=== PATIENT | male | born 1970 | race Caucasian/White ===

== ENCOUNTER 2021-08-02 18:29 | Emergency (ER) | payer OTHER, SELFPAY ==
[2021-08-02 18:38] VITALS: BP 145/80; PULSE 70; RESP 16; TEMP 36; O2SAT 99
--- NOTE | 2021-08-02 19:07 | NUR.NOTE ---
Nursing Note: EDA Jessica at bedside for EKG. Patient refuses test at this time. Reports he is concerned about his insurance deductible and only wants testing that is absolutely necessary. ADAM Bach notified. Conversation with patient, plan for patient to discuss plan of care with his spouse and let us know how to proceed. Gait steady in room. Moves all extremities. Alert and oriented. Speech clear. Answers questions appropriately. GCS 15.
[2021-08-02 19:47] LABS: Absolute Basophil Count 0.01 10^3/uL (0.0-0.2); Absolute Eosinophil Count 0.02 10^3/uL (0.0-0.7); Absolute Lymphocyte Count 0.78 10^3/uL (1.2-3.4); Absolute Monocyte Count 0.37 10^3/uL (0.1-0.8); Absolute Neutrophil Count 2.29 10^3/uL (1.2-6.7); Basophils % 0.3; Eosinophils % 0.6; Lymphocytes % 22.5; MCH 31.5 pg (27.0-33.0); MCHC 34.1 % (32.0-36.0); MCV 92.3 fL (80-95); MPV 9.3 fL (8.0-11.0); Monocytes % 10.7; Neutrophils % 65.9; Nucleated RBC 0 %; Platelet Count 179 10^3/uL (130-400); RBC 4.44 10^6/uL (4.36-5.78); RDW 11.7 % (11.8-14.1); RDW-SD 39.5 fL; WBC 3.47 10^3/uL (4.4-10.8)
--- NOTE | 2021-08-02 19:50 | NUR.NOTE ---
0-Patient agrees to blood draw. Refuses IV fluids or EKG. Will attempt to provide urine, when able. Reports symptoms started 5 days ago and he has been quarantining alone since. Reports his brain fog is better since being in ED.Nursing Note:
[2021-08-02 19:53] VITALS: BP 134/80; PULSE 78; RESP 18; TEMP 36.7; O2SAT 96
[2021-08-02 20:02] LABS: ALT 26 U/L (16-63); AST 27 U/L (15-37); Alkaline Phosphatase 57 U/L (46-116); Anion Gap 6.7 mmol/L (3-11); BUN 16 mg/dL (7-18); Bilirubin, Total 0.4 mg/dL (0.2-1.0); C-Reactive Protein 0.76 mg/dL (0.0-0.3); CO2 30.3 mmol/L (21.0-32.0); Calcium 8.3 mg/dL (8.5-10.1); Chloride 103 mmol/L (98-107); Creatine Kinase 174 U/L (39-308); Glucose 101 mg/dL (74-106); Potassium 3.9 mmol/L (3.5-5.1); Sodium 140 mmol/L (136-145); Total Protein 7.2 g/dL (6.4-8.2)
[2021-08-02 20:18] LABS: Troponin I < 0.05 ng/mL (<0.06)
[2021-08-02 20:19] LABS: D-Dimer 217 ng/mlFEU (<500)
--- NOTE | 2021-08-02 20:31 | ED.GENADUL_ITS ---
Discharge Plan Disposition Patient Disposition: HOME Condition: Stable Discharge Details Clinical Impression: COVID-19 Primary Care Provider: Michael Steiner ED Provider: Mikala Patel Home Meds and New Rx's Prescriptions: No Action ibuprofen 200 mg Capsule 800 mg PO PRN PRNRF: 0 Discharge Instructions Instructions: Viral Syndrome (ED) Additional Instructions: Please follow-up with your primary care physician know that you have tested Stay hydrated and eat regular meals Ibuprofen and Tylenol for fever and pain control Please return with shortness of breath, stiff neck, headache, or should you've You should continue to isolate until your symptoms have resolved order test negative after your positive test is to call me with a question result Referrals: Michael Steiner [Primary Care Provider] - Medical Decision Making Patient is afebrile and nontoxic Speech is slightly slurred but he is cognitively intact, fully alert and oriented x4 He is ambulatory with steady gait I did recommend CT imaging of his head and ED EKG, patient has declined these testing measures He was agreeable to blood work which does not show significant acute abnormality He is aware that he has not been completely evaluated and that we would like to perform form CT scan, patient states that secondary to his deductible he refuses to have a testing done Competent to make this decision He is discharged home in stable condition with stable vitals cognitively intact He is instructed to follow-up with his primary care physician and return earlier should he have new or worsening complaints He is aware that we have not excluded any intracranial pathology or cardiac abnormality Medical Records Medical records reviewed: Yes I reviewed the patient's medical records. Lab Data Lab results reviewed: Yes I reviewed the patient's lab results. HPI General Mode of arrival: ambulatory . Date/Time Provider Initiated Documentation: 08/02/21 18:30 . Limitations to Documentation: no limitations . Information obtained by: patient . HPI Narrative: 50-year-old male presents for report of fogginess after being diagnosed with COVID-19 4 days prior to arrival. He states his symptoms for 5 days. He denies any significant chest pain or shortness of breath. He states he feels out of it . He states his friend is sick with the same symptoms. Denies urinary symptoms, headache, stiff neck. Denies any history of illicit drug use. Denies any loss of consciousness or palpitation. Has had chills. Has had fever, no temp greater than 100.6. Was not Covid vaccinated. Related Data Home Medications Medication Instructions Recorded Confirmed ibuprofen 800 mg PO PRN PRN 08/02/21 08/02/21 Allergies Allergy/AdvReac Type Severity Reaction Status Date / Time Sulfa (Sulfonamide Allergy Unverified 08/02/21 18:44 Antibiotics) gluten AdvReac Unverified 08/02/21 18:44 General Stated Complaint: AMS/LOC DARRYL: 2 Review of Systems All systems reviewed & are unremarkable except as noted in HPI and below PFSH Social History Smoking/Tobacco Use Status: Never Smoking risk assessment performed?: Yes Alcohol Intake: current Alcohol Intake frequency: 0-2 drinks per day Alcohol type: hard liquor Substance use type: does not use Do you feel safe at home: Yes Do you feel safe in your relationship?: Yes Exam Const General: cooperative, comfortable and no acute distress HENMT Head: normal to inspection Mouth: oral mucosae normal Eyes Pupils: PERRL Neck Other: No meningismus Resp Effort & Inspection: normal respiratory effort Auscultation: clear to auscultation bilaterally Cardio Rate: regular rate Rhythm: regular rhythm GI Other: Nontender abdominal exam Skin General skin exam: no rashes or lesions noted Neuro General: patient alert and patient oriented x3 Cranial Nerves: CN's II-XI intact bilaterally Cognition: normal cognition Speech: speech normal Gait: normal gait Course Vital Signs Vital signs: Vital Signs Temperature 36 C L 08/02/21 18:38 Pulse 70 08/02/21 18:38 Respiratory Rate 16 08/02/21 18:38 Blood Pressure 145/80 H 08/02/21 18:38 Pulse Oximetry 99 08/02/21 18:38 Temperature 36.7 C 08/02/21 19:53 Temperature Source Temporal Artery Scan 08/02/21 19:53 Pulse 78 08/02/21 19:53 Respiratory Rate 18 08/02/21 19:53 Respiratory Effort Non-Labored 08/02/21 19:51 Respiratory Depth Normal 08/02/21 19:51 Respiratory Pattern Normal 08/02/21 19:51 Blood Pressure 134/80 08/02/21 19:53 Blood Pressure Position Sitting 08/02/21 18:38 Pulse Oximetry 96 08/02/21 19:53 Oxygen Delivery Method Room Air 08/02/21 19:53 Oxygen Flow Rate 0 08/02/21 19:53 Pain Level 0 08/02/21 18:38 Comment 08/02/21 18:38 Lab/Test Results Lab/Test Results: Laboratory Tests Range/Units 08/02/21 08/02/21 08/02/21 19:40 19:40 19:40 WBC (4.4-10.8) 10^3/uL 3.47 L RBC (4.36-5.78) 10^6/uL 4.44 Hgb (13.5-17.5) g/dL 14.0 Hct (40.0-50.0) % 41.0 MCV (80-95) fL 92.3 MCH (27.0-33.0) pg 31.5 MCHC (32.0-36.0) % 34.1 RDW (11.8-14.1) % 11.7 L Plt Count (130-400) 10^3/uL 179 MPV (8.0-11.0) fL 9.3 Immature Gran % 0.0 Neutrophils % 65.9 Lymphocytes % 22.5 Monocytes % 10.7 Eosinophils % 0.6 Basophils % 0.3 Nucleated RBC % % 0 Absolute Neutrophils (1.2-6.7) 10^3/uL 2.29 Absolute Lymphocytes (1.2-3.4) 10^3/uL 0.78 L Absolute Monocytes (0.1-0.8) 10^3/uL 0.37 Absolute Eosinophils (0.0-0.7) 10^3/uL 0.02 Absolute Basophils (0.0-0.2) 10^3/uL 0.01 D-Dimer (<500) ng/mlFEU 217 Sodium (136-145) mmol/L 140 Potassium (3.5-5.1) mmol/L 3.9 Chloride (98-107) mmol/L 103 Carbon Dioxide (21.0-32.0) mmol/L 30.3 Anion Gap (3-11) mmol/L 6.7 BUN (7-18) mg/dL 16 Creatinine (0.70-1.30) mg/dL 1.0 Estimated GFR/1.73 m2 (mL/min/1.73m2) >= 60.00 Glucose (74-106) mg/dL 101 Calcium (8.5-10.1) mg/dL 8.3 L Magnesium (1.8-2.4) mg/dL 2.0 Total Bilirubin (0.2-1.0) mg/dL 0.4 AST (15-37) U/L 27 ALT (16-63) U/L 26 Alkaline Phosphatase (46-116) U/L 57 Creatine Kinase (39-308) U/L 174 Troponin I (<0.06) ng/mL < 0.05 C-Reactive Protein (0.0-0.3) mg/dL 0.76 H Total Protein (6.4-8.2) g/dL 7.2 Albumin (3.4-5.0) g/dL 4.0 PAWSS Have you Been Recently Intoxicated or Drunk Within the Last 30 days?: Unable to Obtain Have you Ever Experienced Previous Episodes of Alcohol Withdrawal?: No Have you ever Experienced Withdrawal Seizures?: No Have you ever Experienced Delirium Tremens(DT)s?: No Have you ever undergone Alcohol Rehabilitation Treatment (i.e, inpt ot outpatient treatment programs)?: No Have you ever Experienced Blackouts?: No Result: 0
[2021-08-02 20:39] LABS: Bilirubin Negative (Negative); Blood Negative (Negative); Clarity Clear (Clear); Glucose Negative (Negative); Ketones Trace mg/dL (Negative); Leukocyte Esterase Negative (Negative); Nitrite Negative (Negative); Specific Gravity 1.015 (1.005-1.025); Urobilinogen 0.2 EU/dL (Up TO 0.2)
[2021-08-02 20:52] VITALS: BP 138/78; PULSE 74; RESP 18; O2SAT 98
== END 2021-08-02 20:49 | disposition home or self-care (01) ==
PROVIDERS: Emergency Provider Physician Assistant; PCP Internal Medicine
DX: R41.89 Other symptoms and signs involving cognitive functions and awareness (principal); R50.9 Fever, unspecified; U09.9 Post COVID-19 condition, unspecified
CPT/HCPCS: 36415; 80053; 82550; 99283; 81003; 83735; 84484; 85025; 85379; 86140